=== PATIENT | female | born 1960 ===

== ENCOUNTER 2019-07-11 06:33 | Day surgery (SDC) | payer MEDICARE ==
[~2019-07-11 06:33] MED LIST: Buffered Lidocaine 1% SYRIN* 1 ML/SYRINGE INTRADERM ONE; Famotidine IV* 10 MG/ML 2 ML (20 mg) IV ONE; Lactated Ringers 1000 ML Bag* 1,000 ML IV SCH
[2019-07-11] MEDS ORDERED: Dexamethasone IV* 4 MG/ML 1 ML (4 MG) ONE (06:44)
[2019-07-11] MEDS ORDERED: Famotidine IV* 10 MG/ML 2 ML (20 mg) ONE (06:44)
[2019-07-11] MEDS ORDERED: fentaNYL* 50 MCG/ML 2 ML VIAL (100 MCG VIAL) ONE ×2 (07:11→08:02)
[2019-07-11] MEDS ORDERED: Midazolam* 1 MG/ML 2 ML VIAL (2 MG) ONE (07:11)
[2019-07-11] MEDS ORDERED: Lidocaine 2% PF * 5 ML VIAL ONE (07:11)
[2019-07-11] MEDS ORDERED: Propofol* 10 MG/ML 20 ML BTL ONE (07:11)
[2019-07-11] MEDS: Dexamethasone IV* 4 MG/ML 1 ML (4 MG) IV SLOW PU ONE (07:19)
[2019-07-11] MEDS ORDERED: Bupivacaine 0.25% SDV* 30 ML ONE (07:20)
[2019-07-11] MEDS ORDERED: DiMENhydriNATE IV* 50 MG/ML VIAL IV PUSH PRN (07:24)
[2019-07-11] MEDS ORDERED: HYDROcodone/ACETAMIN 5-325 MG* 1 TAB PO PRN (07:24)
[2019-07-11] MEDS ORDERED: oxyCODONE/Acetamin 5/325 MG* TAB PO PRN (07:24)
[2019-07-11] MEDS ORDERED: Naloxone* 0.4 MG/ML 1 ML VIAL IV PRN (07:24)
[2019-07-11] MEDS ORDERED: Ketorolac INJ* 30 MG/ML 1 ML VIAL IV PRN (07:24)
[2019-07-11] MEDS ORDERED: fentaNYL* 50 MCG/ML 2 ML VIAL (100 MCG VIAL) IV PRN (07:24)
[2019-07-11] MEDS ORDERED: Ondansetron INJ* 2 MG/ML VIAL ONE (07:51)
[2019-07-11 09:10] VITALS: BP 105/69
--- NOTE | 2019-07-11 16:06 | OP ---
DATE OF OPERATION: 07/11/19 [facility] DATE OF : 62 SURGEON: Cesar Wu MD STAKEHOLDER MANAGER: NARGIS Mendieta ANESTHESIOLOGIST: Dr. Lam. ANESTHESIA: General. PRE-OP DIAGNOSIS: Right carpal tunnel syndrome. POST-OP DIAGNOSIS: Right carpal tunnel syndrome. OPERATIVE PROCEDURE: Right endoscopic carpal tunnel release. INDICATIONS: Ms. Hicks has pretty significant carpal tunnel syndrome. We had talked about risks and benefits. She had wanted to proceed with surgery. ESTIMATED BLOOD LOSS: 2 mL. COMPLICATIONS: None. FINDINGS: See above and below. DESCRIPTION OF PROCEDURE: Ms. Hicks was seen in the preoperative holding area. The correct site, side, and procedures were identified. We came back to the operating room. The arm was prepped and draped in the usual fashion and a time- out was performed. The arm was exsanguinated with the Esmarch and the tourniquet was inflated to 225 mmHg. I made a 1 cm transverse incision just proximal to the wrist flexion crease and just ulnar to the palmaris longus tendon. Dissection was carried down and 2-prong skin hook was placed underneath the distal antebrachial fascia. The synovial stripper followed by the the dilators and a Q-tip were used to dilate and draw out the carpal tunnel. The MicroAire endoscopic systemic was used to release the transverse carpal ligament from distal to proximal on the ulnar aspect. The distal antebrachial fascia was released proximally with the tenotomy scissors. Once I had confirmed the release and everything was looking good, I irrigated out the wound. The skin was closed with 4-0 Prolene suture and Steri-Strips. 0.24% plain Marcaine was infiltrated about the area. A soft dressing was applied and he was taken to the recovery room in stable condition. [id number]/[facility] #: [id number] ROSALINDA
== END 2019-07-11 09:10 | disposition home or self-care (01) ==
LOC: OREAST 06:33
PROVIDERS: ATTEND Orthopaedic Surgery Hand Surgery
DX: G56.01 Carpal tunnel syndrome, right upper limb (principal); F41.8 Other specified anxiety disorders; E03.9 Hypothyroidism, unspecified; K21.9 Gastro-esophageal reflux disease without esophagitis
CPT/HCPCS: J1100; J2250; J2405; J2704; J3010; J3490